=== PATIENT | female | born 1950 | race Caucasian/White ===

== ENCOUNTER 2023-05-30 14:44 | Emergency (ER) | payer MEDICARE, MEDICAID, SELFPAY ==
[2023-05-30 14:52] VITALS: BP 159/71; PULSE 104; RESP 20; TEMP 37.1; O2SAT 95
--- NOTE | 2023-05-30 16:05 | ED.GENADULT ---
HPI - General Adult General Chief complaint: Upper Respiratory Infection Stated complaint: chills/nausea/fatigue Source: patient Mode of arrival: ambulatory Limitations: no limitations History of Present Illness HPI narrative: Patient presents for evaluation of sick symptoms since this morning. She reports generalized body aches, chills, nausea and vomiting. No fever, diarrhea, constipation, cough, SOB. No change in bowel pattern, with last bowel movement being this morning, solid in consistency and without blood or mucous in the stool. She denies any abdominal pain. No recent sick contacts to her knowledge. She took ibuprofen for her symptoms which seemed to help. She lives with her son. Related Data Home Medications Medication Instructions Recorded Confirmed albuterol sulfate 90 mcg/actuation 1 puff inhalation DIRECTED 05/30/23 05/30/23 aerosol inhaler diclofenac sodium 75 mg 75 mg PO DIRECTED 05/30/23 05/30/23 tablet,delayed release famotidine 20 mg tablet 20 mg PO DIRECTED 05/30/23 05/30/23 levothyroxine 75 mcg tablet 75 mcg PO DIRECTED 05/30/23 05/30/23 metformin 500 mg tablet 500 mg PO DIRECTED 05/30/23 05/30/23 metoprolol tartrate 25 mg tablet 25 mg PO DIRECTED 05/30/23 05/30/23 pravastatin 20 mg tablet 25 mg PO DIRECTED 05/30/23 05/30/23 Allergies Allergy/AdvReac Type Severity Reaction Status Date / Time ciprofloxacin Allergy Unknown Other Verified 05/30/23 15:15 clarithromycin Allergy Unknown Other Verified 05/30/23 15:15 sulfamethoxazole Allergy Unknown Other Verified 05/30/23 15:15 trimethoprim Allergy Unknown Other Verified 05/30/23 15:15 AMOXICILLIN TRIHYDRATE Allergy Unknown Other Uncoded 05/30/23 15:15 CEPHALEXIN MONOHYDRATE Allergy Unknown Other Uncoded 05/30/23 15:15 CIPROFLOXACIN HCL Allergy Unknown Other Uncoded 05/30/23 15:15 POTASSIUM CLAVULANATE Allergy Unknown Other Uncoded 05/30/23 15:15 Review of Systems Review of Systems: CONSTITUTIONAL: Reports chills. Denies fever or sweats. EYES: Denies visual changes, redness, or discharge. ENT: Denies rhinorrhea, congestion, sore throat, or otalgia. CARDIOVASCULAR: Denies chest pain, palpitations, or edema. RESPIRATORY: Denies cough or dyspnea. GASTROINTESTINAL: Reports nausea and vomiting earlier, now resolved. Denies abdominal pain, constipation, diarrhea GENITOURINARY: Denies dysuria or hematuria. SKIN: Denies rash or itching. MUSCULOSKELETAL: Reports generalized body aches NEUROLOGIC: Denies headache, numbness, dizziness, or weakness. PSYCHIATRIC: Denies anxiety or depression. [facility] Past Medical History Medical History Diabetes Hypertension Surgical History Surgical History No pertinent past surgical history Family History Family History Mother Family history non-contributory Social History Social History Substance use: never Living arrangements: with family Gender identity (if verbalized by the patient): Female Sexual Orientation (if Verbalized by the Patient): Straight or Heterosexual Spiritual care concerns: No Exam Narrative: GENERAL: Well-appearing, well-nourished, and in no acute distress. HEAD: Normocephalic, atraumatic. EYES: PERRLA and EOMI. ENT: Nares clear, no rhinorrhea or epistaxis. Mucous membranes moist. Oropharynx without tonsillar hypertrophy exudate or other lesions. Bilateral TMs pearly serrano nonbulging NECK: Supple. No adenopathy or masses. No carotid bruits or JVD CHEST: Clear to auscultation. No respiratory distress. No wheezes rales or rhonchi HEART: Regular rate and rhythm. No murmur heard. Normal peripheral pulses. ABDOMEN: Soft, nontender, nondistended, normal active bowel sounds. EXTREMITIES: Normal range of motion. No e
== END 2023-05-30 16:09 | disposition home or self-care (01) ==
PROVIDERS: Emergency Provider Nurse Practitioner; PCP Nurse Practitioner Family
DX: B34.9 Viral infection, unspecified (principal); Z20.822 Contact with and (suspected) exposure to COVID-19; I10 Essential (primary) hypertension; E11.9 Type 2 diabetes mellitus without complications; Z79.84 Long term (current) use of oral hypoglycemic drugs
CPT/HCPCS: 87081; 87426; 87804; 87880; 99213; C9803; G0463